=== PATIENT | female | born 1990 | race Caucasian/White ===

== ENCOUNTER 2023-11-16 21:56 | Observation (INO) ==
--- NOTE | 2023-11-16 22:13 | Emergency Department Note ---
History of Present Illness General Chief complaint: Dental/Oral Stated complaint: TOOTH PAIN Time Seen by Provider: 11/16/23 22:01 History of Present Illness Maximum Pain Intensity: 10 This is a 33-year-old female that presents to the emergency department via private vehicle with complaints of "dental abscess". Patient was just discharged from this facility. She was recommended admission at that time but noted she had to return home/take the car home and take care of a few things and has now returned. Patient notes she is here to continue with the recommendation of her recent ED visit which was admission to the hospital. She does note progressive left-sided facial pain and swelling. Home Medications Medication Instructions Recorded Confirmed Type Medical Marijuana 1 dose inhalation DIRECTED PRN 11/16/23 11/16/23 History Anxiety amoxicillin 875 mg tablet 875 mg PO BID 11/16/23 11/16/23 History Allergies Allergy/AdvReac Type Severity Reaction Status Date / Time clindamycin Allergy Severe Anaphylaxis Verified 11/16/23 22:19 Past Med/Surg History Social History Smoking Status: Current every day smoker Preferred Language: Moroccan Feels Safe at Home: Yes Review of Systems A total of 6 systems reviewed and were otherwise negative Physical Exam Vital Signs Vital Signs - 24 hr 11/16/23 22:01 11/16/23 22:19 11/16/23 22:20 Temperature 36.5 C Temperature Source Temporal Artery Scan Pulse Rate 81 70 76 Pulse Rate [Apical] Pulse Rate from SpO2 Sensor 75 Pulse Rhythm [Apical] Pulse Strength [Apical] Respiratory Rate 16 16 Respiratory Effort / Characteristics Respiratory Depth Respiratory Pattern Blood Pressure 146/83 H Blood Pressure [Right Arm] Blood Pressure Mean 104 Blood Pressure Mean [Right Arm] Pulse Oximetry 99 99 Oxygen Delivery Method Room Air Sepsis Recent Fever Within 48 Hours No Sepsis New/Unexplained Change in Mental Status No Sepsis Action Taken by Nursing No Action Required 11/16/23 22:21 11/16/23 22:21 11/16/23 22:21 Temperature Temperature Source Pulse Rate 71 Pulse Rate [Apical] 88 Pulse Rate from SpO2 Sensor 71 Pulse Rhythm [Apical] Regular Pulse Strength [Apical] Normal Respiratory Rate 20 17 Respiratory Effort / Characteristics Non-Labored Spontaneous Respiratory Depth Normal Respiratory Pattern Regular Blood Pressure 130/77 Blood Pressure [Right Arm] 130/77 Blood Pressure Mean 88 Blood Pressure Mean [Right Arm] 94 Pulse Oximetry 98 98 Oxygen Delivery Method Room Air Sepsis Recent Fever Within 48 Hours Sepsis New/Unexplained Change in Mental Status Sepsis Action Taken by Nursing 11/16/23 22:30 11/16/23 22:40 11/16/23 22:50 Temperature Temperature Source Pulse Rate 69 63 63 Pulse Rate [Apical] Pulse Rate from SpO2 Sensor 70 62 63 Pulse Rhythm [Apical] Pulse Strength [Apical] Respiratory Rate 18 17 15 Respiratory Effort / Characteristics Respiratory Depth Respiratory Pattern Blood Pressure Blood Pressure [Right Arm] Blood Pressure Mean Blood Pressure Mean [Right Arm] Pulse Oximetry 98 98 98 Oxygen Delivery Method Sepsis Recent Fever Within 48 Hours Sepsis New/Unexplained Change in Mental Status Sepsis Action Taken by Nursing VITAL SIGNS - Vital signs and nursing notes were reviewed. Hypertensive, otherwise stable. GENERAL -33-year-old female appearing her stated age who is in no acute distress. Communicates well with provider and answers questions appropriately. SKIN - Without rashes. There is left-sided facial edema, progressed since her evaluation earlier today. HEAD - NC/AT. EYES - Sclera anicteric. EARS - No deformities of external structures noted on gross examination bilaterally. NOSE - Midline and without cyanosis. MOUTH/OROPHARYNX - Without perioral cyanosis. Fair dentition noted. NECK - No nuchal rigidity. LUNGS -CTA. CARDIAC - RRR NEUROLOGIC - Cranial nerves grossly intact. PSYCH -alert, oriented and pleasant on exam Course Administered Medications Potassium Chloride/Sodium Chloride (Normal Saline W/20 Meq Kcl) 20 meq in 1,000 mls @ 75 mls/hr IV .[id number] STA; Protocol Stop: 11/17/23 11:39 Last Admin: 11/16/23 22:27 Dose: 75 mls/hr Documented By: ARLYN Oxycodone HCl (Oxycodone Hcl Ir 5 Mg Tab (Immediate Release)) 5 mg PO Q4H PRN PRN Reason: Pain Stop: 11/30/23 22:11 Last Admin: 11/16/23 22:26 Dose: 5 mg Documented By: ARLYN Discontinued Medications Ampicillin Sodium/Sulbactam Sodium 3,000 mg/ Sodium Chloride 100 mls @ 200 mls/hr IV NOW STA Stop: 11/16/23 23:01 Last Infusion: 11/17/23 00:43 Dose: Infused Documented By: Admin: 11/16/23 22:54 Dose: 200 mls/hr Documented By: ARLYN Medical Decision Making MDM Narrative Patient was seen and evaluated as above in room A11. Review was performed of nursing notes and vital signs. I did review pertinent previous visits and patient history. A thorough history and physical examination was performed. Patient presents to us today to proceed with the recommended admission. I did take care of the patient earlier today and she noted after I recommended admission that she had to return home temporarily but then would present back here immediately for admission. She is here for that admission. In short, she has left-sided facial infection and had a CT scan earlier today as well as lab oratory studies. I did also speak to the oral surgeon on her recent visit and we will proceed with inpatient management. Please refer to my note earlier in the day regarding initial visit. Options of care were discussed with the patient. Case discussed with the hospitalist service. IV access was established. Please refer to further documentation regarding her stay. In the evaluation and treatment of this patient, the following differential diagnoses were considered: Periapical Abscess, Osteonecrosis of the Jaw, Dental Fracture, Dental Caries, Lucas's Angina, Vincent's Angina, Facial Cellulitis. Impression & Plan Cellulitis of face, Dental abscess Discharge Plan Visit Data Chief Complaint: Dental/Oral Stated Complaint: TOOTH PAIN ED Provider: Alcides Rayo ED Midlevel Provider: Jean Carlos Glaser Discharge Problem: Cellulitis of face, Dental abscess Patient Disposition: Admitted As Inpatient Condition: Good Discharge Instructions Interventions: ED Discharge Assessment Last Done: 11/17/23 00:10
[2023-11-16] MEDS: oxyCODONE HCL IR 5 MG TAB (IMMEDIATE RELEASE) PO PRN (22:26)
[2023-11-16] MEDS: NSS + 20MEQ KCL 20 MEQ/1,000 ML BAG IV STA (22:27)
[2023-11-16] MEDS: AMPICILLIN/SULBACTAM SOD 3,000 MG in SODIUM CHLOR 0.9% MINI-B 100 ML IV STA (22:54)
[2023-11-16] MEDS ORDERED: LORazepam 0.5 MG TAB PO PRN (23:05)
--- NOTE | 2023-11-16 23:33 | History & Physical Report ---
Date of Service November 16, 2023 Assessment & Plan (1) Odontogenic infection of jaw: Plan: No sepsis for now hx GERD, not on maintenance medications anxiety, stable ongoing tobacco abuse OBS GMF Unasyn Oromaxillofacial surgery consultation Re: Odontogenic infection (ER provider already in touch with Dr. Burroughs.) N.p.o. in anticipation of procedure in a.m. Nicotine patch as needed DVT prophylaxis. SCDs Re: Possible procedure Full code Text document was generated using [employer] voice recognition software. It may contain grammatical or spelling errors. Kindly contact undersigned for clarification of any documentation item in question. History of Present Illness Chief Complaint: Tooth ache Primary Care Provider: Alfa Lawson MD History obtained from patient and records. Medical history significant for GERD, anxiety, gestational hypertension, gestational DM, history preeclampsia, ongoing tobacco abuse. 2 weeks history of worsening dental pain more on the left. No fever, no chills. Outpatient amoxicillin Rx. Patient has not seen a dentist for more than 10 years due to insurance issues and fear of dentists. Patient seen at the ER for evaluation this afternoon due to worsening symptoms. Face CT showed periapical abscess arising from the root of the left first maxillary premolar with cortical breakthrough and an adjacent soft tissue abscess. Numerous dental caries are seen throughout. Given 1 dose of Augmentin at the ER. Admission recommended but patient had to go home to take care of a few things. Patient returned to ER . Medical History as above Surgical History : section, right salpingectomy Family History : Bone cancer, DM, heart disease, stroke, breast cancer, congenital hip dysplasia Personal/Social history : Half pack daily, no EtOH intake, automotive glazier Allergies Allergy/AdvReac Type Severity Reaction Status Date / Time clindamycin Allergy Severe Anaphylaxis Verified 11/16/23 22:19 Home Medications Medication Instructions Recorded Confirmed Type Medical Marijuana 1 dose inhalation DIRECTED PRN 11/16/23 11/16/23 History Anxiety amoxicillin 875 mg tablet 875 mg PO BID 11/16/23 11/16/23 History Past Med/Surg History Social History Smoking Status: Current every day smoker Tobacco Type: Cigarettes Cigarettes Per Day: 1/2 PACK; Hx Alcohol Use: No Hx Substance Use: No Preferred Language: Burundian Communication Ability: Effective Recreational Aide Required: No Beliefs That Will Affect Care: None Current Living Situation: Spouse Feels Safe at Home: Yes Assistive Devices: None Review of Systems Review of Systems: As per HPI, all other systems reviewed and negative Physical Exam Physical Exam: GENERAL: Comfortable, pleasant, no respiratory distress SKIN: Normal color, warm HEENT: [place] palpebral conjunctivae, no ptosis, dry buccal mucosa, no trismus, tender carious left maxillary premolar NECK : Supple, no tenderness CHEST : CTA, no tenderness HEART : RRR, no obvious murmurs ABDOMEN: Some distention, nontender EXTREMITIES : No LE swelling/tenderness, no other conspicuous deformities noted NEUROLOGIC : Coherent, no facial asymmetry, no other gross focality Results & Data Results & Data Vital Signs (Past 12 Hours) Vital Signs Temp Pulse Pulse Resp BP BP Pulse Ox 11/16/23 22:50 63 15 98 11/16/23 22:40 63 17 98 11/16/23 22:30 69 18 98 11/16/23 22:21 71 17 98 11/16/23 22:21 130/77 11/16/23 22:21 88 20 130/77 98 11/16/23 22:20 76 16 99 11/16/23 22:19 70 11/16/23 22:01 36.5 C 81 16 146/83 H 99 O2 Del Method 11/16/23 22:50 11/16/23 22:40 11/16/23 22:30 11/16/23 22:21 11/16/23 22:21 11/16/23 22:21 Room Air 11/16/23 22:20 11/16/23 22:19 11/16/23 22:01 Room Air
[2023-11-17] MEDS: ACETAMINOPHEN 325 MG TAB PO PRN (00:49)
[2023-11-17] MEDS: KETOROLAC TROMETHAMINE 15 MG/ML VIAL IV PRN (00:49)
[2023-11-17] MEDS: AMPICILLIN/SULBACTAM SOD 3,000 MG in SODIUM CHLOR 0.9% MINI-B 100 ML IV SCH (05:03)
[2023-11-17 07:25] LABS: Basophils # (auto) 0.04 K/uL (0.00-0.20); Basophils % (auto) 0.4 %; Eosinophils # (auto) 0.19 K/uL (0.00-0.50); Eosinophils % (auto) 1.9 %; Hematocrit (blood only) 38.3 % (37.0-47.0); Hemoglobin 13.1 g/dl (12.0-16.0); Immature Granulocytes # (auto) 0.04 K/uL (0.01-0.20); Immature Granulocytes % (auto) 0.4 %; Lymphocytes # (auto) 2.45 K/uL (1.20-3.40); Lymphocytes % (auto) 24.1 %; Mean Corpuscular Hgb Conc 34.2 g/dL (32.0-36.0); Mean Corpuscular Volume 90.5 fL (80.0-100.0); Monocytes # (auto) 0.63 K/uL (0.11-0.59); Monocytes % (auto) 6.2 %; Neutrophils # (auto) 6.83 K/uL (1.40-6.50); Platelet Count 169 K/uL (130-400); RDW Coefficient of Variation 11.9 % (11.5-14.5); RDW Standard Deviation 39.6 fL (36.4-46.3); Red Blood Count 4.23 M/uL (4.20-5.40); White Blood Count 10.18 K/ul (4.8-10.8)
--- NOTE | 2023-11-17 08:06 | Oral/Maxillofacial Consult ---
Date of Consultation November 17, 2023 Assessment & Plan (1) Odontogenic infection of jaw: (2) Dental abscess: (3) Cellulitis of face: History of Present Illness Attending Physician: Keesha Monahan MD History of Present Illness Maximum Pain Intensity: 10 This is a 33-year-old female that presents to the emergency department via private vehicle with complaints of "dental abscess". Patient was just discharged from this facility. She was recommended admission at that time but noted she had to return home/take the car home and take care of a few things and has now returned. Patient notes she is here to continue with the recommendation of her recent ED visit which was admission to the hospital. She does note progressive left-sided facial pain and swelling. Oral Maxillofacial Surgery Exam Present Complaint: I have pain/swelling/drainage from my infected teeth. Symptoms have been ongoing for a while. Maximum Pain Intensity: 10 This is a 33-year-old female that presents to the emergency department via private vehicle with complaints of "dental abscess". Patient was just discharged from this facility. She was recommended admission at that time but noted she had to return home/take the car home and take care of a few things and has now returned. Patient notes she is here to continue with the recommendation of her recent ED visit which was admission to the hospital. She does note progressive left-sided facial pain and swelling. Oral Exam: Finding-Gross infection of the upper left face associated with the following teeth 1,2,3,11,12,18,19,32, tender gingival tissue with deep pocket formation.Teeth are in an abnormal position and removal is clinical indicated. Significant facial and mucobuccal infection Imaging: CT was was reviewed personally there were no abnormal findings other then the infected teeth # 1,2,3,11,12,18,19,32 teeth. The TMJ are well positioned and no evidence of bony pathology. The sinus, supporting bone all WNL Evaluated the nerve/sinus relationship to the roots of the teeth. Soft tissue: Acute upper left face swelling as well and Upper right mucobuccal abscess. The right floor of the mouth associated with # 32 is swollen, tongue, hard/soft palate, posterior pharyngeal area all with in normal limits, no pathology or abnormal findings noted. Oral Care: Overall oral care is very poor Occlusion: Class I TMJ exam: No pop, clicking, pain, good ROM, No history of TMJ injury or dysfunction Periodontal exam: Infected gingival tissue with evidence of periodontal pathology. Head/Neck exam: Neck is supple, FROM, Able to extend and flex neck w/o difficulty, no masses, no abnormalities, no airway issues, no evidence of sleep apnea. Treatment Plan: Gross infection of the upper left face associated with the following teeth 1,2,3,11,12,18,19,32, tender gingival tissue with deep pocket formation.Teeth are in an abnormal position and removal is clinical indicated. Set up with general anesthesia in hospital vs. surgical due to complexity of the procedure I reviewed the treatment plan and consent with the patient Understanding was expressed. Time was given for questions regarding the surgery, risks and post op care. Discussed alternative to treatment--procedure as planned, Do not do surgery The following teeth are decayed and fractured and removal is indicated RACHELLE:Gross infection of the upper left face associated with the following teeth 1,2,3,11,12,18,19,32, tender gingival tissue with deep pocket formation.Teeth are grossly infected very painful, removal is clinical indicated. Risks discussed: Bleeding,Pain,swelling,infection, dry socket, delayed healing, nerve injury to face,lips,tongue,chin area which could be permanent (rare). TMJ, jaw stiffness, change in bite (rare), ear pain (referred). Sinus problems like fistula or infection. Need to leave a small root fragment in place to avoid injury to nerve or sinus. Relationship of wisdom teeth to nerve/sinus and risk of jaw fracture. Home care reviewed: tooth brushing, rinsing, follow up care with Dr Burroughs. diet=[id number] dental. Discussed activity level, driving/work while on Rx pain Meds. Need for further dental treatment Surgery to be set up once this afternoon in the OR Allergies Allergy/AdvReac Type Severity Reaction Status Date / Time clindamycin Allergy Severe Anaphylaxis Verified 11/16/23 22:19 Home Medications Medication Instructions Recorded Confirmed Type Medical Marijuana 1 dose inhalation DIRECTED PRN 11/16/23 11/16/23 History Anxiety amoxicillin 875 mg tablet 875 mg PO BID 11/16/23 11/16/23 History Patient History Social History Smoking Status: Current every day smoker Tobacco Type: Cigarettes Cigarettes Per Day: 1/2 PACK; Hx Alcohol Use: No Hx Substance Use: No Preferred Language: Slovenian Communication Ability: Effective Real Estate Director Required: No Beliefs That Will Affect Care: None Current Living Situation: Spouse Feels Safe at Home: Yes Safety Concerns: Feels Safe At This Time Assistive Devices: None Results & Data Vital Signs (Past 12 Hours) Vital Signs Temp Pulse Pulse Pulse Resp BP BP 11/17/23 07:25 36.8 C 62 14 135/75 11/17/23 00:15 36.8 C 57 L 18 167/83 H 11/17/23 00:10 11/17/23 00:00 52 L 17 146/86 H 11/16/23 22:50 63 15 11/16/23 22:40 63 17 11/16/23 22:30 69 18 11/16/23 22:21 71 17 11/16/23 22:21 130/77 11/16/23 22:21 88 20 130/77 11/16/23 22:20 76 16 11/16/23 22:19 70 11/16/23 22:01 36.5 C 81 16 146/83 H Pulse Ox O2 Del Method 11/17/23 07:25 98 Room Air 11/17/23 00:15 98 Room Air 11/17/23 00:10 Room Air 11/17/23 00:00 97 Room Air 11/16/23 22:50 98 11/16/23 22:40 98 11/16/23 22:30 98 11/16/23 22:21 98 11/16/23 22:21 11/16/23 22:21 98 Room Air 11/16/23 22:20 99 11/16/23 22:19 11/16/23 22:01 99 Room Air PG Care Time/CCT Total # of Minutes Spent Total Time Spent with Patient: Total time spent is greater than 50% in coordination of care (as documented) at patient's floor/unit and/or counseling patient: Coding Level of Care Code 03386 IN/OBS CONSULT LVL 3,45M Diagnoses Odontogenic infection of jaw M27.2 Dental abscess K04.7 Cellulitis of face L03.211
[2023-11-17] MEDS: NICOTINE 14 MG/24 HR PATCH TD SCH (10:15)
--- NOTE | 2023-11-17 18:06 | Hospitalist Progress Note ---
Date of Service November 17, 2023 Assessment & Plan (1) Dental abscess: Plan: Presented with left facial swelling and pain in the teeth and jaw CT revealed infected tooth #1, 2, 3, 11, 12, 18, 19, and 32nd with adjoining abscess Status post upper left facial incision and drainage of the abscess Will continue current antibiotic and pain management Further management will be as per facial maxillary surgeon (2) Cellulitis of face: Plan: Has been getting antibiotic with Unasyn (3) Odontogenic infection of jaw: Plan: Other significant medical conditions as below hx GERD, not on maintenance medications anxiety, stable ongoing tobacco abuse Nicotine patch as needed DVT prophylaxis. SCDs Re: Possible procedure Full code Text document was generated using [employer] voice recognition software. It may contain grammatical or spelling errors. Kindly contact undersigned for clarification of any documentation item in question. Admission and Anticipated Discharge Date Admission Date: November 16, 2023 Subjective 11/17/2023 The patient was seen and examined in medical floor She came in with left facial incision to abscess She will have extraction of the left fascial incisor and drainage Review of Systems Review of Systems: All systems reviewed and are unremarkable except as noted below Physical Exam Physical Exam: Lying in bed without any acute distress Constitutional: well developed, well nourished, + ill appearing and average body habitus Eyes: PERRL, conjunctivae normal, anicteric sclerae ENMT: external ear and nose normal, oropharynx normal Neck: trachea midline, no thyromegaly Respiratory: no respiratory distress Auscultation: lungs clear to auscultation bilaterally Cardiovascular: Rate/Rhythm: regular rate and regular rhythm; not tachycardic Heart Sounds: normal S1 and normal S2; no murmur Extremities: no edema Gastrointestinal (Abdomen): Inspection/Auscultation: normal bowel sounds; abdomen not distended Percussion/Palpation: abdomen soft; abdomen nontender Musculoskeletal: No acute arthritis involving any joint Neurologic: normal touch/pain/proprioception and moves all extremities; no focal motor deficits Psychiatric: A+Ox3, euthymic affect Lymphatic: no cervical or axillary lymphadenopathy Results & Data Results & Data Vital Signs (Past 12 Hours) Vital Signs Temp Pulse Resp BP Pulse Ox O2 Del Method 11/17/23 14:31 36.8 C 71 14 156/82 H 97 Room Air 11/17/23 07:25 36.8 C 62 14 135/75 98 Room Air Laboratory Results Short CBC 11/17/23 Range/Units 06:54 WBC 10.18 (4.8-10.8) K/ul Hgb 13.1 (12.0-16.0) g/dl Hct 38.3 (37.0-47.0) % Plt Count 169 (130-400) K/uL Medications Administered Current Inpatient Medications Acetaminophen (Acetaminophen 325 Mg Tab) 650 mg PO QID PRN PRN Reason: pain/fever Stop: 12/16/23 22:11 Last Admin: 11/17/23 11:25 Dose: 650 mg Ampicillin Sodium/Sulbactam Sodium 3,000 mg/ Sodium Chloride 100 mls @ 100 mls/hr IV Q6H ARMANDO Stop: 11/27/23 05:59 Last Infusion: 11/17/23 12:29 Dose: Infused Ketorolac Tromethamine (Ketorolac Tromethamine 15 Mg/Ml Vial) 15 mg IV Q6H PRN PRN Reason: Pain Stop: 11/21/23 22:11 Last Admin: 11/17/23 13:48 Dose: 15 mg Lorazepam (Lorazepam 0.5 Mg Tab) 0.5 mg PO TID PRN PRN Reason: Anxiety Stop: 12/16/23 23:04 Miscellaneous (Remove Nicoderm Patch) 1 each N/A DAILY@0859 [facility] Stop: 12/18/23 08:58 Nicotine (Nicotine 14 Mg/24 Hr Patch) 14 mg TD QAM [facility] Stop: 12/17/23 09:59 Last Admin: 11/17/23 10:15 Dose: 14 mg Oxycodone HCl (Oxycodone Hcl Ir 5 Mg Tab (Immediate Release)) 5 mg PO Q4H PRN PRN Reason: Pain Stop: 11/30/23 22:11 Last Admin: 11/17/23 16:28 Dose: 5 mg
[2023-11-17] MEDS ORDERED: fentaNYL citrate PF 100 MCG/2 ML VIAL ONE (18:20)
[2023-11-17] MEDS ORDERED: MIDAZOLAM HCL 1 MG/ML 2ML VIAL ONE (18:20)
[2023-11-17] MEDS ORDERED: ONDANSETRON INJ 2 MG/ML 2 ML VIAL ONE (18:20)
[2023-11-17] MEDS ORDERED: ROCURONIUM BROMIDE 10 MG/ML 5 ML VIAL IV ONE (18:20)
[2023-11-17] MEDS ORDERED: DEXAMETHASONE SOD INJ 4 MG/ML VIAL ONE (18:20)
[2023-11-17] MEDS ORDERED: LIDOCAINE 2% 2 ML VIAL/AMP(20MG/ML) INFIL ONE (18:20)
[2023-11-17] MEDS ORDERED: PROPOFOL IV EMULSION 10 MG/ML 20 ML VIAL IV ONE (18:20)
--- NOTE | 2023-11-17 18:21 | Anesthesiology Consultation ---
Date of Service November 17, 2023 Assessment & Plan Chart Review Chart Review: Acceptable Risk for Surgery and Patient NOT seen in Pre Admission Testing Consults Requested none ASA ASA3 Proposed Anesthesia Anesthesia Type: General History Surgery Operation Date: 11/17/23 13:00 Proposed Procedures p Upper Left Facial Incision and Drainage - Earl Burroughs DMD s Tooth Extraction #1,2,3,11,12,18,19,32 - Earl Burroughs DMD Height/Weight Height: 5 ft Weight: 57.5 kg Allergies Allergy/AdvReac Type Severity Reaction Status Date / Time clindamycin Allergy Severe Anaphylaxis Verified 11/16/23 22:19 Medications Home Medications Medication Instructions Recorded Confirmed Last Taken Medical Marijuana 1 dose inhalation DIRECTED PRN 11/16/23 11/16/23 Unknown Anxiety amoxicillin 875 mg tablet 875 mg PO BID 11/16/23 11/16/23 11/16/23 Active Medications Generic Name Dose Route Start Last Admin Trade Name Freq PRN Reason Stop Dose Admin Acetaminophen 650 mg 11/16/23 22:12 11/17/23 11:25 Acetaminophen 325 Mg Tab PO 12/16/23 22:11 650 mg QID PRN Administration pain/fever Ampicillin Sodium/Sulbactam 100 mls @ 100 mls/hr 11/17/23 06:00 11/17/23 12:29 Sodium 3,000 mg/ Sodium IV 11/27/23 05:59 Infused Chloride Q6H ARMANDO Infusion Ketorolac Tromethamine 15 mg 11/16/23 22:12 11/17/23 13:48 Ketorolac Tromethamine 15 Mg/Ml Vial IV 11/21/23 22:11 15 mg Q6H PRN Administration Pain Nicotine 14 mg 11/17/23 10:00 11/17/23 10:15 Nicotine 14 Mg/24 Hr Patch TD 12/17/23 09:59 14 mg QAM ARMANDO Administration Oxycodone HCl 5 mg 11/16/23 22:12 11/17/23 16:28 Oxycodone Hcl Ir 5 Mg Tab (Immediate Release) PO 11/30/23 22:11 5 mg Q4H PRN Administration Pain NPO Date Last Intake of Fluids: 11/17/23 Time Last Intake of Fluids: 16:00 Date Last Intake of Solids: 11/14/23 Time Last Intake of Solids: 23:00 Social History Smoking Status: Current every day smoker Smoking cigarettes per day: 1/2 PACK Hx Alcohol Use: No Hx Substance Use: No Physical Exam Vital Signs Last Vital Signs Temp 37.0 C 11/17/23 17:56 Pulse 69 11/17/23 17:56 Resp 13 11/17/23 17:56 BP 130/68 11/17/23 17:56 Pulse Ox 100 11/17/23 17:56 O2 Del Method Room Air 11/17/23 17:56 Constitutional well developed, well nourished, + ill appearing and average body habitus Eyes PERRL, conjunctivae normal, anicteric sclerae ENMT external ear and nose normal, oropharynx normal Neck trachea midline, no thyromegaly Respiratory no respiratory distress Auscultation: lungs clear to auscultation bilaterally Cardiovascular Rate/Rhythm: regular rate and regular rhythm; not tachycardic Heart Sounds: normal S1 and normal S2; no murmur Extremities: no edema Gastrointestinal (Abdomen) Inspection/Auscultation: normal bowel sounds; abdomen not distended Percussion/Palpation: abdomen soft; abdomen nontender Neurologic normal touch/pain/proprioception and moves all extremities; no focal motor deficits Psychiatric A+Ox3, euthymic affect Lymphatic no cervical or axillary lymphadenopathy Testing Laboratory Results 11/17/23 06:54
[2023-11-17] MEDS ORDERED: ATROPINE SULFATE 0.1 MG/ML 10ML SYR IV PRN (18:22)
[2023-11-17] MEDS ORDERED: ePHEDrine sulfate 50 MG/ML AMP IV PRN (18:22)
[2023-11-17] MEDS ORDERED: fentaNYL citrate PF 100 MCG/2 ML VIAL IV PRN (18:22)
[2023-11-17] MEDS ORDERED: ONDANSETRON INJ 2 MG/ML 2 ML VIAL IV PRN (18:22)
--- NOTE | 2023-11-17 18:36 | History & Physical Bridge Note ---
Date of Service November 17, 2023 History & Physical Bridge Note I have examined the patient, reviewed the History & Physical and in the interval since the performance of the History & Physical I have noted the following changes of clinical significance: no changes noted OK for the planned surgical procedures to drain the facial infection
[2023-11-17] MEDS: CHLORHEXIDINE GLUCONATE 0.12% 480 ML MT ONE (19:28)
[2023-11-17] MEDS ORDERED: SUGAMMADEX SODIUM 200 MG/2 ML VIAL IV ONE (19:36)
[2023-11-17] MEDS: BUPIVACAINE/EPINEPHRINE 0.5% 1:200,000 1.8 ML CARP ONE (20:01)
--- NOTE | 2023-11-17 20:08 | Post Operative Brief Note ---
PG Immediate Post Op with CF Date of Surgery November 17, 2023 Pre & Post Diagnosis Operation Date: 11/17/23 13:00 Pre-Op Diagnosis: Odontogenic infection of jaw Post-Op Diagnosis: Odontogenic infection of jaw I identified the patient and participated in the time-out.: Yes Procedure Operation Date: 11/17/23 13:00 Actual Procedures p Upper Left Facial Incision and Drainage(Left) - Earl Burroughs DMD s Tooth Extraction #1,2,3,11,12,18,19,32(Not Applicable) - Earl Burroughs DMD Surgeon Earl Burroughs DMD Visual Education Teacher none Estimated Blood Loss 4 Findings Consistent with Post-Op Diagnosis grossly infected decayed teeth 1,2,3,11,12,18,19,32 Specimens Specimen Description: Culture 1: Upper Left Maxilla Complications none Disposition Accompanied Patient To Recovery: Yes
--- NOTE | 2023-11-17 20:38 | Anesthesiology Progress Note ---
Date of Service November 17, 2023 Anesthesia Post Procedure Vital Signs Vital Signs: Temp Pulse Pulse Pulse Resp BP BP 11/17/23 20:35 82 19 124/66 11/17/23 20:25 77 20 126/68 11/17/23 20:16 90 16 119/65 11/17/23 20:06 36.4 C L 85 20 109/55 L 11/17/23 17:56 37.0 C 69 13 130/68 11/17/23 14:31 36.8 C 71 14 156/82 H 11/17/23 07:25 36.8 C 62 14 135/75 11/17/23 00:15 36.8 C 57 L 18 167/83 H 11/17/23 00:10 11/17/23 00:00 52 L 17 146/86 H 11/16/23 22:50 63 15 11/16/23 22:40 63 17 11/16/23 22:30 69 18 11/16/23 22:21 71 17 11/16/23 22:21 130/77 11/16/23 22:21 88 20 130/77 11/16/23 22:20 76 16 11/16/23 22:19 70 11/16/23 22:01 36.5 C 81 16 146/83 H Pulse Ox O2 Del Method 11/17/23 20:35 96 Room Air 11/17/23 20:25 97 Room Air 11/17/23 20:16 99 Room Air 11/17/23 20:06 99 Room Air 11/17/23 17:56 100 Room Air 11/17/23 14:31 97 Room Air 11/17/23 07:25 98 Room Air 11/17/23 00:15 98 Room Air 11/17/23 00:10 Room Air 11/17/23 00:00 97 Room Air 11/16/23 22:50 98 11/16/23 22:40 98 11/16/23 22:30 98 11/16/23 22:21 98 11/16/23 22:21 11/16/23 22:21 98 Room Air 11/16/23 22:20 99 11/16/23 22:19 11/16/23 22:01 99 Room Air Pain Intensity Mouth: Pain Intensity: 10 Left Mouth: Pain Intensity: 6 Transfer of Care Handoff Completed per policy Notes Mental Status: alert / awake / arousable Patient Amnestic to Procedure: Yes Nausea / Vomiting: adequately controlled Pain: adequately controlled Airway Patency, RR, SpO2: stable & adequate BP & HR: stable & adequate Hydration State: stable & adequate Anesthetic Complications: no major complications apparent and Pt Satisfied with anesthetic care
[2023-11-17] MEDS ORDERED: Nursing to Pharmacy Communication SCH (22:15)
--- NOTE | 2023-11-18 11:17 | Discharge Summary ---
Discharge Summary Date of Service November 18, 2023 Notes For Next Care Provider Patient hospitalized for odontogenic infection and abscess. She was seen and evaluated by oral maxillofacial surgeon, Dr. Burroughs. She underwent incision and drainage as well as multiple tooth extraction. Pl ease see full operative report. Aerobic and anaerobic culture was sent from incision and drainage, please follow-up with this. She is being discharged on oral Augmentin as well as strict mouth care in structions. Please ensure patient follows up with Dr. Burroughs as well as establishes with routine dental care. Medication Changes From Visit Augmentin 875 mg 1 tablet by mouth twice daily for 14 days. Florastor 250 mg 1 tablet once daily for 7 days. It is recommended that you utilize Tylenol and ibuprofen in alternating fashion for pain control. Tylenol 500 mg every 4 hours as needed for pain alternating with ibuprofen 600 mg every 6 hours as needed for pain. You may also utilize oxycodone 5 mg every 6 hours as needed for severe pain. It is recommended that you consistently use either Tylenol or ibuprofen for improved pain control. Admission HPI Per Admitting Provider History obtained from patient and records. Medical history significant for GERD, anxiety, gestational hypertension, gestational DM, history preeclampsia, ongoing tobacco abuse. 2 weeks history of worsening dental pain more on the left. No fever, no chills. Outpatient amoxicillin Rx. Patient has not seen a dentist for more than 10 years due to insurance issues and fear of dentists. Patient seen at the ER for evaluation this afternoon due to worsening symptoms. Face CT showed periapical abscess arising from the root of the left first maxillary premolar with cortical breakthrough and an adjacent soft tissue abscess. Numerous dental caries are seen throughout. Given 1 dose of Augmentin at the ER. Admission recommended but patient had to go home to take care of a few things. Patient returned to ER . Medical History as above Surgical History : section, right salpingectomy Family History : Bone cancer, DM, heart disease, stroke, breast cancer, congenital hip dysplasia Personal/Social history : Half pack daily, no EtOH intake, principal military analyst Admission Exam Per Admitting Provider GENERAL: Comfortable, pleasant, no respiratory distress SKIN: Normal color, warm HEENT: [place] palpebral conjunctivae, no ptosis, dry buccal mucosa, no trismus, tender carious left maxillary premolar NECK : Supple, no tenderness CHEST : CTA, no tenderness HEART : RRR, no obvious murmurs ABDOMEN: Some distention, nontender EXTREMITIES : No LE swelling/tenderness, no other conspicuous deformities noted NEUROLOGIC : Coherent, no facial asymmetry, no other gross focality Principal Dx & Hospital Course #1 = Principal Diagnosis (1) Dental abscess: (2) Cellulitis of face: (3) Odontogenic infection of jaw: Plan This is a 34-year-old female who has significant past medical history of GERD, anxiety, gestational hypertension and diabetes, history of preeclampsia and ongoing tobacco abuse who presents to ED secondary to 2-week history of worsening dental pain and left-sided face swelling. She was not septic on admission. CT revealed infected tooth #1, 2, 3, 11, 12, 18, 19, and 32nd with adjoining abscess. She was admitted to hospital and started on IV Unasyn. She was seen and evaluated by oral maxillofacial surgeon in which she underwent incision and drainage as well as multiple tooth extractions. Please see operative report for further detail. Postop day 1 she was doing well. Her swelling has improved. She will remain on antibiotics for additional 2 weeks. She is being prescribed a small course of oral oxycodone for severe pain control. She will need close follow-up with oral maxillary surgeon as well as establishment of routine dental care. Her postoperative course was uncomplicated and she was discharged home in good spirits. On day of discharge her vital signs were stable and she was afebrile. She was tolerating soft diet. Discharge Exam Gen: WD/WN, NAD, A&O x3 HEENT: Normocephalic, atraumatic, conjunctivae moist, sclerae anicteric, left- sided facial swelling, no erythema, tender to touch Lung: Clear to Auscultation bilaterally, no wheezes/rales/rhonchi Heart: Regular rate, regular rhythm, no murmurs, rubs, or gallops Abdomen: Soft, NT, ND +BS x 4 Extremities: No edema Skin: Warm, no rash, negative turgor. Updated Medication List Medication Instructions Recorded Confirmed Type Medical Marijuana 1 dose inhalation DIRECTED PRN 11/16/23 11/16/23 History Anxiety Saccharomyces boulardii 250 mg 250 mg PO DAILY #14 caps 11/18/23 Rx capsule (Florastor) amoxicillin 875 mg-potassium 1 tab PO Q12H 14 days #28 tabs 11/18/23 Rx clavulanate 125 mg tablet oxycodone 5 mg tablet 5 mg PO Q6H PRN severe pain (scale 11/18/23 Rx score 7-10) #12 tabs Hospital Stay Data Consultations 11/16/23 22:12 ED Decision to Admit Stat 11/16/23 23:30 Consult Oromaxillofacial Surgery Routine Procedures Performed Operation Date: 11/17/23 13:00 Actual Procedures p Upper Left Facial Incision and Drainage(Left) - Earl Burroughs DMD s Tooth Extraction #1,2,3,11,12,18,19,32(Not Applicable) - Earl Burroughs DMD Pending Results Patient Have Any Pending Studies at Discharge: Yes Discharge Instructions Given to Patient (Per Discharging Provider) MEDICATION CHANGES: Augmentin 875 mg 1 tablet by mouth twice daily for 14 days. Your next scheduled dose is in the evening on 11/18/23. Florastor 250 mg 1 tablet once daily for 7 days. It is recommended that you utilize Tylenol and ibuprofen in alternating fashion for pain control. Tylenol 500 mg every 4 hours as needed for pain alternating with ibuprofen 600 mg every 6 hours as needed for pain. You may also utilize oxycodone 5 mg every 6 hours as needed for severe pain. It is recommended that you consistently use either Tylenol or ibuprofen for improved pain control. SUMMARY OF TEST RESULTS: You were admitted to hospital secondary to facial cellulitis and dental abscess. You were seen and evaluated by oral maxillofacial surgeon, Dr. Burroughs Who performed an incision and drainage as well as multiple tooth extractions. You were treated with IV antibiotics and is to be transition to oral antibiotics for an additional 2 weeks. PENDING TEST RESULTS: Culture from intraoperative incision and drainage, your primary care provider can follow-up with this. RECOMMENDATIONS FOR FOLLOW-UP: Please follow all instructions detailed by your oral surgeon below. Please complete antibiotics in their entirety. Please follow-up with your primary care provider as scheduled. Please follow-up with your oral surgeon as scheduled. Please schedule an appointment with a dentist for routine dental care. It is recommended you quit smoking. Please discuss with your primary care provider at follow-up for additional options and alternatives to help with this. OTHER INSTRUCTIONS: Seek medical attention if you have: * temperature above 101 * chest pain or trouble breathing * abdominal pain, nausea, vomiting * diarrhea, dark stools or bloody stools * any unanswered questions or concerns Call 911 if symptoms are severe. Please take good care of yourself. It has been a pleasure taking care of you. Please take care of yourself. If you have any questions regarding your recent hospitalization please contact [facility] and request Rudi Guevara @ [phone]. Araceli Gibson PA-C Total Time Total Time Spent Total Time Spent (In Minutes): 45 minutes Supervising Physician Co-Signing Physician Notes Attending addendum The patient was seen and examined in medical floor She is a status post dental abscess dryness on the left side She has been feeling much better and tolerating regular diet She will be discharged this afternoon On examination Remains hemodynamically stable and afebrile No apparent distress at rest Chestclear HeartS1-S2, regular Abdomenbenign Extremitynegative for any edema Her labs, medications and imaging studies reviewed Status post I&D for drainage of dental abscess Remains medically stable to be discharged Agree with assessment plan as outlined above by Luisa Monahan
--- NOTE | 2023-11-18 16:39 | Oral/Maxillofacial Progress Nt ---
Date of Service November 18, 2023 Assessment & Plan Admission and Anticipated Discharge Date Admission Date: November 16, 2023 Subjective Post Op infection evaluation 24 hours The infected area has responded very well Swelling almost gone and the tissue is healing well No drainage is noted. Extractions healing well, well sutured and no bleeding. Infection has responded very well to the antibiotics, extractions and the I and D. I requested that the patient continue with massage, heat and wound care. At this time the area is well healed and responded well to treatment. RTC in 10-21 days OK for discharge as per hospital medicine Results & Data Vital Signs (Past 12 Hours) Vital Signs Temp Pulse Resp BP Pulse Ox O2 Del Method 11/18/23 11:01 36.8 C 62 14 118/70 98 Room Air 11/18/23 07:32 36.8 C 69 14 111/68 99 Room Air PG Care Time/CCT Total # of Minutes Spent Total Time Spent with Patient: Total time spent is greater than 50% in coordination of care (as documented) at patient's floor/unit and/or counseling patient: Coding Level of Care Code None
--- NOTE | 2023-11-18 18:21 | Operative Report ---
PG Post Operative Report Pre & Post Diagnosis Operation Date: 11/17/23 13:00 Pre-Op Diagnosis: Odontogenic infection of jaw Post-Op Diagnosis: Odontogenic infection of jaw I identified the patient and participated in the time-out.: Yes Procedure Operation Date: 11/17/23 13:00 p Incision and Drainage upper left facial infraorbital and subperiosteal space abscess/ Left masseter space abscess / Removal of teeth 1,2,3,11,12,18,19,32 Earl Burroughs, DMD [id number] x 6 for 1,2,3,11,12,32 D7210 x 2 for 18,19 CPT CPT Once cleared for surgery general anesthesia was achieved, the eyes were protected by the anesthesia dept criteria. A time out was take for patient ID, antibiotics, equipment and position verification once all agreed the procedure began. Local anesthesia using Marcaine with a vasoconstrictor (1.8 ml per site) given into left/right inferior alveolar nerve and upper right/left maxilla A throat pack was placed after the oral cavity was irrigated with saline. Once a surgical level of anesthesia was obtained and the local anesthesia was given time for the blocks the surgery was started. I turned my attention to the infection which was located in the left upper left facial infraorbital and subperiosteal space abscess There was swelling associated with tooth #11,12 and 18,19 ( see CT scan report) Incision and Drainage left lower CPT 27661 submandibular space Using a 15 blade an incision was made lateral to the alveolar ridge and medial to the vestibular fold in the area of greatest fluctuance on the lower left side Once the incision was made a lot of pus extruded from the site. This drainage was cultured for anaerobic and aerobic bacteria. A curved hemostat was carefully placed into the infected space along the lateral side of the lower jaw and into the submandibular / masseter space. Some further drainage was now allowed to escape. I palpated the cheek and submandibular area and no further drainage was expressed. The area was irrigated with at least 100 ml of NS solution. I now turned my attention to remove the #18 and 19 tooth. Lower tooth # 18 and 19 [id number] x 2 The full thick Muco-periosteal flap was made on the facial aspect from the retromolar area to area # 22. The flap was reflected to expose the the subperiosteal space the bone adjacent to #18 and 19. The rogues was used to remove bone, the tooth was removed with a 301 elevator and cowhorn dental forceps, the mental nerve was intact, there was a large amount of granulation tissue on the apex and some more pus that was expressed. The socket was curetted and then sutured to allow further drainage with a 2-0 chromic. Incision and Drainage left upper CPT 90091 I&D vestibular and infraorbital space Using a 15 blade an incision was made lateral to the alveolar ridge and medial to the vestibular fold in the area of greatest fluctuance on the upper anterior infraorbital space Once the incision was made a lot of pus extruded from the site. This drainage was cultured for anaerobic and aerobic bacteria. A curved hemostat was carefully placed into the infected space along the facial aspect of the upper jaw and lateral nose jaw and into the infraorbital space. Some further drainage was now allowed to escape. I palpated the cheek and no further drainage was expressed. The area was irrigated with at least 100 ml of NS solution. I now turned my attention to remove the 11 and 12 teeth. Upper teeth 11 and 12 [id number] x 2 These teeth were loose secondary to the infection.They were removed with a 301 elevator and dental forceps, there was a large amount of granulation tissue on the apex and some more pus that was expressed. The socket was curetted and then sutured to allow further drainage with a 2-0 chromic. Extraction of upper teeth 1,2,3,32 [id number] x 4 These teeth were fractured simple extraction that were removed in the standard manner using dental forceps I inspected the sites to insure all bleeding was controlled. I removed the throat pack and suctioned the throat. Gauze pressure dressings were placed. All instrument and sponge count was correct. The patient was allowed to awake from the anesthesia. Once full awake the anesthesia tube was removed and the patient was taken to the recovery room with all vital sign stable. The patient tolerated the surgery very well. I will follow the patient in my office, Rx and instructions will be given upon discharge. Earl Burroughs DMD Surgeon Earl Burroughs, MANISH Kiln Remover none Estimated Blood Loss 4 Findings Consistent with Post-Op Diagnosis Specimens C&S Drains none Anesthesia Type General Complications none Disposition Accompanied Patient To Recovery: Yes Indications infection pain and swelling Description of Procedure Actual Procedures p Incision and Drainage masseter space, subperiosteal and submandibular space abscess; Removal of (Not Applicable) - Earl Burroughs DMD Once cleared for surgery general anesthesia was achieved, the eyes were protected by the anesthesia dept criteria. A time out was take for patient ID, antibiotics, equipment and position verification once all agreed the procedure began. Local anesthesia using Marcaine with a vasoconstrictor (1.8 ml per site) given into left inferior alveolar nerve and right cheek mucosa A throat pack was placed after the oral cavity was irrigated with saline. Once a surgical level of anesthesia was obtained and the local anesthesia was given time for the blocks the surgery was started. I turned my attention to the infection which was located in the left subperiosteal space and submandibular and masseter space area. There was swelling associated with tooth # 19 ( see CT scan report) Incision and Drainage Using a 15 blade an incision was made lateral to the alveolar ridge and medial to the vestibular fold in the area of greatest fluctuance. Once the incision was made a lot of pus extruded from the site. This drainage wa s cultured for anaerobic and aerobic bacteria. A curved hemostat was carefully placed into the infected space along the lateral side of the lower jaw and into the submandibular / masseter space. Some further drainage was now allowed to escape. I palpated the cheek and submandibular area and no further drainage was expressed. The area was irrigated with at least 100 ml of NS solution. I now turned my attention to remove the # 19 tooth. Lower tooth # 19 [id number] The full thick Muco-periosteal flap was made on the facial aspect from the retromolar area to area # 22. The flap was reflected to expose the the subperiosteal space the bone adjacent to # 19. The rogues was used to remove bone, the tooth was removed with a 301 elevator and cowhorn dental forceps, the mental nerve was intact, there was a large amount of granulation tissue on the apex and some more pus that was expressed. The socket was curetted and then sutured to allow further drainage with a 2-0 chromic. Right side traumatic fibroma 1 cm exophytic fibrotic mass with a papilloma like appearance was located at the right corner of the mouth (mucosa) An Incision was made around the mass. The full thickness tissue biopsy was of the lesion was taken. The deep structures were not involved. The tissue margins were treated with a low dose electrosurg setting to coagulate and bleeding. The lesion was delivered for pathology evaluation. The 1 cm excision site was primarily closed with 4-0 chromic sutures. I inspected the sites to insure all bleeding was controlled. I removed the throat pack and suctioned the throat. A gauze pressure dressings was placed. All instrument and sponge count was correct. The patient was allowed to awake from the anesthesia. Once full awake the anesthesia tube was removed and the patient was taken to the recovery room with all vital sign stable. The patient tolerated the surgery very well. I will follow the patient in my office, Rx and instructions will be given upon discharge. I attest to the content of the Intraoperative Record and any orders documented therein. Any exceptions are noted below.
== END 2023-11-18 13:00 | disposition home or self-care (01) ==
LOC: ED 21:56 → 3N 21:56 → SUATTDRO 23:04 → 3N 11-17 00:10